=== PATIENT | female | born 1990 | race Caucasian/White ===

== ENCOUNTER 2018-05-10 22:46 | Emergency (ER) | payer OTHER ==
[2018-05-10 22:56] VITALS: BP 133/91; PULSE 68; TEMP 97.6; BMI 31.6
--- NOTE | 2018-05-11 00:26 | PDOC ---
History of Present Illness - General History Source: Patient Exam Limitations: No Limitations - History of Present Illness Initial Comments: 05/11/18 01:17 The patient is a 28 year old female, with a significant past medical history of recurrent kidney stones, who presents to the emergency department with, right flank pain with associated nausea. Patient notes similar episodes in the past due to her kidney stones, when they move around. Her last CT was 4 months ago. She denies recent fevers, chills, headache or dizziness. She denies recent nausea, diarrhea or constipation. She denies recent dysuria, frequency, urgency or hematuria. She denies recent chest pain or shortness of breath. Allergies: NKA Social history: Nonsmoker. Denies EtOH use and recreational drug use. Urologist: [facility] <Jeremias Miranda - Last Filed: 05/11/18 02:17> <Mary Chavez - Last Filed: 05/11/18 02:25> - General Chief Complaint: Pain Stated Complaint: KIDNEY PAIN Time Seen by Provider: 05/11/18 00:26 Past History <Jeremias Miranda - Last Filed: 05/11/18 02:17> - Past Medical History COPD: No Disorders: Yes (cystineurea) - Suicide/Smoking/Psychosocial Hx Smoking History: Never smoked Have you smoked in the past 12 months: No Information on smoking cessation initiated: No Hx Alcohol Use: No Drug/Substance Use Hx: No <Mary Chavez - Last Filed: 05/11/18 02:25> - Past Medical History Allergies/Adverse Reactions: Allergies Allergy/AdvReac Type Severity Reaction Status Date / Time No Known Allergies Allergy Verified 12/20/17 01:11 Home Medications: Ambulatory Orders Potassium Citrate [Potassium Citrate ER] 10 meq PO DAILY 05/11/18 Review of Systems - Review of Systems Able to Perform ROS?: Yes Comments:: 05/11/18 01:18 GENERAL/CONSTITUTIONAL: No fever or chills. No weakness. HEAD, EYES, EARS, NOSE AND THROAT: No change in vision. No ear pain or discharge. No sore throat. GASTROINTESTINAL: +Nausea. No vomiting, diarrhea or constipation. GENITOURINARY: +Right flank pain. No dysuria, frequency, or change in urination. CARDIOVASCULAR: No chest pain or shortness of breath. RESPIRATORY: No cough, wheezing, or hemoptysis. MUSCULOSKELETAL: No joint or muscle swelling or pain. No neck or back pain. SKIN: No rash NEUROLOGIC: No headache, vertigo, loss of consciousness, or change in strength/ sensation. ENDOCRINE: No increased thirst. No abnormal weight change. HEMATOLOGIC/LYMPHATIC: No anemia, easy bleeding, or history of blood clots. ALLERGIC/IMMUNOLOGIC: No hives or skin allergy. All Other Systems: Reviewed and Negative <Jeremias Miranda - Last Filed: 05/11/18 02:17> *Physical Exam - Vital Signs Last Vital Signs Temp Pulse Resp BP Pulse Ox 97.6 F 68 20 133/91 100 05/10/18 22:51 05/10/18 22:51 05/10/18 22:51 05/10/18 22:51 05/10/18 22:51 - Physical Exam Comments: 05/11/18 01:19 GENERAL: Awake, in no acute distress HEAD: No signs of trauma ENT: Moist mucosa NECK: Normal ROM, supple, no lymphadenopathy or JVD. LUNGS: Breath sounds equal, clear to auscultation bilaterally. No wheezes, and no crackles. Normal work of breathing. HEART: Regular rate and rhythm, normal S1 and S2, no murmurs, rubs or gallops ABDOMEN: Soft, nontender, normoactive bowel sounds. No guarding. Non- distended. BACK: No midline tenderness. EXTREMITIES: Normal range of motion, no edema. No clubbing or cyanosis. No erythema, or tenderness NEUROLOGICAL: Alert, and fully oriented x4, Cranial nerves II through XII grossly intact. Normal speech. DTRs 2/4 bilaterally. SKIN: Warm, Dry, normal turgor, no rashes or lesions noted. <Jeremias Miranda - Last Filed: 05/11/18 02:17> - Vital Signs Last Vital Signs Temp Pulse Resp BP Pulse Ox 97.6 F 68 20 133/91 100 05/10/18 22:51 05/10/18 22:51 05/10/18 22:51 05/10/18 22:51 05/10/18 22:51 <Mary Chavez - Last Filed: 05/11/18 02:25> Moderate Sedation - Procedure Monitoring Vital Signs: Procedure Monitoring Vital Signs Temperature 97.6 F 05/10/18 22:51 Pulse Rate 68 05/10/18 22:51 Respiratory Rate 20 05/10/18 22:51 Blood Pressure 133/91 05/10/18 22:51 O2 Sat by Pulse Oximetry (%) 100 05/10/18 22:51 <RitikaSeth brookelina - Last Filed: 05/11/18 02:17> - Procedure Monitoring Vital Signs: Procedure Monitoring Vital Signs Temperature 97.6 F 05/10/18 22:51 Pulse Rate 68 05/10/18 22:51 Respiratory Rate 20 05/10/18 22:51 Blood Pressure 133/91 05/10/18 22:51 O2 Sat by Pulse Oximetry (%) 100 05/10/18 22:51 <Mary Chavez - Last Filed: 05/11/18 02:25> ED Treatment Course - LABORATORY CBC & Chemistry Diagram: 05/11/18 01:18 05/11/18 01:18 <Jeremias Miranda - Last Filed: 05/11/18 02:17> - LABORATORY CBC & Chemistry Diagram: 05/11/18 01:18 05/11/18 01:18 <Mary AnneMary keyes - Last Filed: 05/11/18 02:25> Medical Decision Making - Medical Decision Making 05/11/18 02:17 EXAM: ABDOMEN \T\ PELVIS CT W/O CONTR HISTORY: Flank pain COMPARISON: None. FINDINGS: Lung bases are clear. The visualized cardiac chambers are normal size and configuration. There is a 3.3 x 1.7 cm left renal staghorn stone in additional punctate left renal stones with cortical scarring but no hydronephrosis or ureteral stone. There are moderate-sized right renal stones measuring up to 12 mm with mild scarring but no ureteral stones or hydronephrosis . No perinephric inflammation. Normal unenhanced liver, gallbladder, pancreas, spleen, adrenal glands . The stomach and abdominal small and large bowel are normal. There is no aortic aneurysm. There is no significant retroperitoneal lymphadenopathy. The pelvic small and large bowel are normal. The appendix is normal. The uterus and adnexal structures are notable only for IUD. Urinary bladder is unremarkable. There is no pelvic free fluid. No discrete pelvic lymphadenopathy is identified. IMPRESSION: Bilateral renal stones and scarring without hydronephrosis or perinephric inflammation, including a 3.3 cm left renal staghorn calculus. One or more of the following dose reduction techniques were used: automated exposure control, adjustment of the mA and/or kV according to patient size, use of iterative reconstructive technique. Read by: Dayne Ratliff MD <Jeremias Miranda - Last Filed: 05/11/18 02:17> - Medical Decision Making 05/11/18 02:23 CT scan shows no evidence of obstruction or ureterolithiasis Patient given Toradol 30 mg IV prior to discharge with Zofran ODT prescription She will follow up with her urologist <Mary Chavez - Last Filed: 05/11/18 02:25> *DC/Admit/Observation/Transfer - Attestations Scribe Attestion: 05/11/18 01:19 Documentation prepared by Jeremias Miranda, acting as biomedical engineering technician for Mary Chavez DO. <Jeremias Miranda - Last Filed: 05/11/18 02:17> - Discharge Dispostion Decision to Admit order: No - Attestations Physician Attestion: 05/11/18 02:21 I, Dr Mary Chavez, attest that this document has been prepared under my direction and personally reviewed by me in its entirety. I further attest, that it accurately reflects all work, procedures and medical decision making performed by me. <Mary Chavez - Last Filed: 05/11/18 02:25> Diagnosis at time of Disposition: Flank pain, Nephrolithiasis - Discharge Dispostion Disposition: HOME Condition at time of disposition: Stable - Patient Instructions Printed Discharge Instructions: Kidney Stones -- Adult Additional Instructions: Follow-up with your urologist. Return to the hospital if you develop fever or
[2018-05-11] MEDS ORDERED: SODIUM CHLORIDE 1,000 ML IV STA (00:32)
[2018-05-11] MEDS ORDERED: ONDANSETRON 4 MG/2 ML VIAL IVPUSH ONE (00:32)
[2018-05-11] MEDS ORDERED: ONDANSETRON 4 MG/2 ML VIAL ONE (00:53)
[2018-05-11 01:27] LABS: HEMATOCRIT 41.3 % (32.4-45.2); HEMOGLOBIN 13.9 GM/dL (10.7-15.3); MCH 27.9 pg (25.7-33.7); MCHC 33.7 g/dl (32.0-36.0); MEAN CELL VOLUME 82.8 fl (80-96); MEAN PLT VOLUME 8.5 fl (7.5-11.1); PLATELET COUNT 224 K/MM3 (134-434); RBC 4.99 M/mm3 (3.60-5.2); WHITE BLOOD COUNT 9.6 K/mm3 (4.0-10.0)
[2018-05-11 01:31] LABS: URINE APPEARANCE CLEAR; URINE BILIRUBIN NEGATIVE (<2.0 mg/dL); URINE COLOR COLORLESS; URINE GLUCOSE (UA) NEGATIVE (NEGATIVE); URINE KETONE NEGATIVE (NEGATIVE); URINE LEUK ESTERASE 1+ (NEGATIVE); URINE NITRITE NEGATIVE (NEGATIVE); URINE PROTEIN NEGATIVE (NEGATIVE); URINE UROBILINOGEN NEGATIVE mg/dL (0.2-1.0)
[2018-05-11 01:33] LABS: EPI CELLS RARE /HPF (FEW)
[2018-05-11 01:55] LABS: ALBUMIN 4.3 g/dl (3.4-5.0); ALK PHOS 68 U/L (45-117); ANION GAP 5 MMOL/L (8-16); BILIRUBIN,TOTAL 0.2 mg/dL (0.2-1); BLOOD UREA NITROGEN 17 mg/dL (7-18); CALCIUM 9.4 mg/dL (8.5-10.1); CHLORIDE 101 mmol/L (98-107); CO2 29 mmol/L (21-32); CREATININE 1.1 mg/dL (0.55-1.3); GLUCOSE,RANDOM 103 mg/dL (74-106); POTASSIUM 4.2 mmol/L (3.5-5.1); SGOT/AST 26 U/L (15-37); SGPT/ALT 52 U/L (13-61); SODIUM 135 mmol/L (136-145); TOT PROT 8.2 g/dl (6.4-8.2)
[2018-05-11 06:38] LABS: N-TERMINAL BNP 30.4 pg/ml (5-125)
== END 2018-05-11 02:39 | disposition home or self-care (01) ==
LOC: JER 22:46
DX: R10.31 Right lower quadrant pain (principal); N20.0 Calculus of kidney; Z87.442 Personal history of urinary calculi
CPT/HCPCS: 36415; 74176-TC; 80053; 81003; 81015; 83880; 85027; 99283-25; J7030

== ENCOUNTER 2019-03-08 04:09 | Emergency (ER) | payer OTHER ==
[2019-03-08 04:29] VITALS: TEMP 98; BMI 31.1
[2019-03-08] MEDS ORDERED: SODIUM CHLORIDE 1,000 ML IV STA (06:49)
--- NOTE | 2019-03-08 06:50 | PDOC ---
History of Present Illness - General Chief Complaint: Pain, Acute Stated Complaint: R/O KIDNEY STONE/UTI Time Seen by Provider: 03/08/19 06:33 - History of Present Illness Initial Comments: 03/08/19 06:45 HPI: 29 y/o with hx of cystinuria and recurrent UTIs/kidney stones presenting with abdominal pain and flank pain x2 days. She reports feeling "renal colic" that is present in her BL lateral abdomen with radiation to the BL flanks. Pain is crampy and throbbing in nature. Pain is constant and intermittently worsens. Pain occasionally worsens during urination but denies any burning urination or hematuria. She also reports nausea and hasnt been drinking as much water as she normally does. She denies fever, chills, emesis, chest pain, SOB, postprandial pain, heartburn. PMHx: as noted above ROS: as noted SHx: weekly hookah tobacco use; occasional alcohol use; no rec drugs Allergies: NKDA ROS: GENERAL/CONSTITUTIONAL: No fever or chills. No weakness. HEAD, EYES, EARS, NOSE AND THROAT: No change in vision. No ear pain or discharge. No sore throat. CARDIOVASCULAR: No chest pain or shortness of breath RESPIRATORY: No cough, wheezing, or hemoptysis. GASTROINTESTINAL: +nausea; no vomiting, diarrhea or constipation. GENITOURINARY: +dysuria; no frequency, or change in urination. MUSCULOSKELETAL: No joint or muscle swelling or pain. No neck or back pain. SKIN: No rash NEUROLOGIC: No headache, vertigo, loss of consciousness, or change in strength/ sensation. ENDOCRINE: No increased thirst. No abnormal weight change HEMATOLOGIC/LYMPHATIC: No anemia, easy bleeding, or history of blood clots. ALLERGIC/IMMUNOLOGIC: No hives or skin allergy. PE: GENERAL: Awake, alert, and fully oriented, no acute distress HEAD: No signs of trauma, normocephalic, atraumatic EYES: EOMI, sclera anicteric, conjunctiva clear ENT: Auricles normal inspection, hearing grossly normal, nares patent, oropharynx clear without exudates. Moist mucosa NECK: Normal ROM, no lymphadenopathy LUNGS: No increased work of breathing, symmetrical chest rise, clear to auscultation bilaterally, no wheezes, crackles or rhonchi HEART: Regular rate and rhythm, normal S1 and S2, no murmur, peripheral pulses 2 + and equal bilaterally. ABDOMEN: Soft, nondistended, nontender, normoactive bowel sounds. No guarding, no rebound. No masses. right CVAT MUSCULOSKELETAL: Normal inspection, FROM NEUROLOGICAL: Cranial nerves II through XII grossly intact. Normal speech, normal gait, no focal sensorimotor deficits SKIN: Warm, Dry, normal turgor, no rashes or lesions noted Past History - Past Medical History Allergies/Adverse Reactions: Allergies Allergy/AdvReac Type Severity Reaction Status Date / Time No Known Allergies Allergy Verified 03/08/19 04:24 Home Medications: Ambulatory Orders Ondansetron [Zofran Odt -] 4 mg SL TID PRN #12 od.tablet 05/11/18 Potassium Citrate [Potassium Citrate ER] 10 meq PO DAILY 05/11/18 COPD: No Disorders: Yes (cystineurea) - Psycho Social/Smoking Cessation Hx Smoking History: Never smoked Have you smoked in the past 12 months: No Hx Alcohol Use: No Drug/Substance Use Hx: No *Physical Exam - Vital Signs Last Vital Signs Temp Pulse Resp BP Pulse Ox 98.0 F 69 18 124/92 98 03/08/19 04:22 03/08/19 04:22 03/08/19 04:22 03/08/19 04:22 03/08/19 04:22 Medical Decision Making - Medical Decision Making 03/08/19 06:48 29 y/o with hx of cystinuria and recurrent UTIs/kidney stones presenting with abdominal pain and flank pain x2 days. VSS, AF. PE with mild right sided CVAT. -ua, ucx, upreg -ivf -signed out to day team to followup labs and reassess Discharge - Discharge Information Problems reviewed: Yes Clinical Impression/Diagnosis: Flank pain, Abdominal pain - Follow up/Referral - Patient Discharge Instructions - Post Discharge Activity
--- NOTE | 2019-03-08 06:56 | PDOC ---
Attending Attestation - Resident Resident Name: Giovanna Stout - ED Attending Attestation I have performed the following: I have examined & evaluated the patient, The case was reviewed & discussed with the resident, I agree w/resident's findings & plan - HPI HPI: 03/08/19 06:55 see resident hpi - Physicial Exam PE: 03/08/19 06:55 agree with resident exam - Medical Decision Making 03/08/19 06:56 29-year-old female with history of nephrolithiasis complaining of bilateral flank pain increased with urination Plan for urinalysis and signed out to day team for further evaluation
[2019-03-08 07:14] LABS: PH,URINE 8.5 (5.0-8.0); URINE APPEARANCE CLEAR; URINE BILIRUBIN NEGATIVE (NEGATIVE); URINE COLOR YELLOW; URINE GLUCOSE (UA) NEGATIVE (NEGATIVE); URINE KETONE NEGATIVE (NEGATIVE); URINE LEUK ESTERASE NEGATIVE (NEGATIVE); URINE NITRITE NEGATIVE (NEGATIVE); URINE PROTEIN NEGATIVE (NEGATIVE); URINE UROBILINOGEN 0.2 mg/dL (0.2-1.0)
[2019-03-08 07:56] LABS: BASO % 0.3 % (0-2.0); EOS % 2.5 % (0-4.5); HEMATOCRIT 41.4 % (32.4-45.2); HEMOGLOBIN 13.4 GM/dL (10.7-15.3); LYMPH % 30.4 % (8-40); MCH 26.9 pg (25.7-33.7); MCHC 32.3 g/dl (32.0-36.0); MEAN CELL VOLUME 83.1 fl (80-96); MEAN PLT VOLUME 8.3 fl (7.5-11.1); MONO % 5.7 % (3.8-10.2); NEUT % 61.1 % (42.8-82.8); PLATELET COUNT 244 K/MM3 (134-434); RBC 4.98 M/mm3 (3.60-5.2); RDW 14.3 % (11.6-15.6); WHITE BLOOD COUNT 9.1 K/mm3 (4.0-10.0)
[2019-03-08 08:19] LABS: ALBUMIN 4.2 g/dl (3.4-5.0); BILIRUBIN,TOTAL 0.7 mg/dL (0.2-1); CALCIUM 9.5 mg/dL (8.5-10.1); CREATININE 0.8 mg/dL (0.55-1.3); POTASSIUM 4.2 mmol/L (3.5-5.1); TOT PROT 7.6 g/dl (6.4-8.2)
[2019-03-08] MEDS ORDERED: MAG HYDROX/AL HYDROX/SIMETH 30 ML UNIT-DOSE CUP PO ONE (08:29)
[2019-03-08] MEDS ORDERED: FAMOTIDINE 20 MG/50 ML IVPB 20 MG/50 ML MG IVPB ONE ×2 (08:30→08:38)
[2019-03-08] MEDS ORDERED: ONDANSETRON 4 MG/2 ML VIAL IVPUSH ONE (08:30)
[2019-03-08] MEDS ORDERED: ONDANSETRON 4 MG/2 ML VIAL ONE (08:38)
[2019-03-08] MEDS ORDERED: MAG HYDROX/AL HYDROX/SIMETH 30 ML UNIT-DOSE CUP ONE (08:38)
--- NOTE | 2019-03-08 09:13 | PDOC ---
*Physical Exam - Vital Signs Last Vital Signs Temp Pulse Resp BP Pulse Ox 98.0 F 69 18 124/92 98 03/08/19 04:22 03/08/19 04:22 03/08/19 04:22 03/08/19 04:22 03/08/19 04:22 - Physical Exam General Appearance: Yes: Nourished, Appropriately Dressed HEENT: positive: EOMI, GRETA, Normal ENT Inspection, Pharynx Normal Neck: positive: Trachea midline, Normal Thyroid, Supple Respiratory/Chest: positive: Lungs Clear, Normal Breath Sounds Cardiovascular: positive: Regular Rhythm, Regular Rate, S1, S2. negative: Murmur, Gallop/S3, Gallop/S4 Vascular Pulses: Dorsalis-Pedis (R): 2+, Doralis-Pedis (L): 2+ Gastrointestinal/Abdominal: positive: Normal Bowel Sounds, Soft, Tenderness ( flank pain, 5/10) Neurologic: positive: Fully Oriented, Alert, Normal Mood/Affect ED Treatment Course - LABORATORY CBC & Chemistry Diagram: 03/08/19 07:30 03/08/19 07:30 - ADDITIONAL ORDERS Additional order review: Laboratory Results 03/08/19 03/08/19 03/08/19 07:30 06:55 06:55 Sodium 138 Potassium 4.2 Chloride 104 Carbon Dioxide 28 Anion Gap 5 L BUN 16.0 Creatinine 0.8 Est GFR (CKD-EPI)AfAm 114.66 Est GFR (CKD-EPI)NonAf 98.93 Random Glucose 87 Calcium 9.5 Total Bilirubin 0.7 AST 25 ALT 43 Alkaline Phosphatase 55 Total Protein 7.6 Albumin 4.2 Lipase 145 Urine Color Yellow Urine Appearance Clear Urine pH 8.5 H Ur Specific [place] 1.008 L Urine Protein Negative Urine Glucose (UA) Negative Urine Ketones Negative Urine Blood Negative Urine Nitrite Negative Urine Bilirubin Negative Urine Urobilinogen 0.2 Ur Leukocyte Esterase Negative Urine HCG, Qual Negative 03/08/19 07:30 RBC 4.98 MCV 83.1 MCHC 32.3 RDW 14.3 MPV 8.3 Neutrophils % 61.1 Lymphocytes % 30.4 Monocytes % 5.7 Eosinophils % 2.5 Basophils % 0.3 - RADIOLOGY Radiology Studies Ordered: Category Date Time Status ABDOMEN FLAT & UPRIGHT [RAD] Stat Radiology 03/08/19 08:31 Completed - Medications Given in the ED: ED Medications Discontinued Medications Generic Name Dose Route Start Last Admin Trade Name [place] PRN Reason Stop Dose Admin Al Hydroxide/Mg Hydroxide 30 ml 03/08/19 08:29 03/08/19 08:30 Mylanta Oral Suspension - PO 03/08/19 08:30 30 ml ONCE ONE Administration Sodium Chloride 1,000 mls @ 1,000 mls/hr 03/08/19 06:49 03/08/19 07:20 Normal Saline - IV 03/08/19 07:48 1,000 mls/hr ASDIR STA Administration Famotidine/Sodium Chloride 20 mg in 50 mls @ 100 mls/hr 03/08/19 08:30 08:30 Pepcid 20 Mg Premixed Ivpb - IVPB 03/08/19 08:59 100 mls/hr ONCE ONE Administration Ondansetron HCl 4 mg 03/08/19 08:30 03/08/19 08:30 Zofran Injection IVPUSH 03/08/19 08:31 4 mg ONCE ONE Administration Medical Decision Making - Medical Decision Making 29 y/o F, pmh cystinuria and recurrent UTIs/kidney stones presenting with abdominal pain and flank pain x2 days duration #LUQ pain likely 2/2 to indigestion vs gastritis Pepcid, Maalox, Zofran- helped relieve symptoms Abdominal X ray ordered Tolerating oral diet Will reassess 03/08/19 09:13 Discharge - Discharge Information Clinical Impression/Diagnosis: Flank pain Abdominal pain Qualifiers: Abdominal location: left upper quadrant Qualified Code(s): R10.12 - Left upper quadrant pain Condition: Improved Disposition: HOME - Admission No - Additional Discharge Information Prescriptions: Polyethylene Glycol 3350 17 gm PO DAILY 7 Days powd.pack Polyethylene Glycol 3350 17 gm PO DAILY 7 Days #7 powd.pack - Follow up/Referral Referrals: Theron Trevino MD [Staff Physician] - [facility] [place] [Provider Group] - Patient Discharge Instructions Patient Printed Discharge Instructions: DI for Constipation, DI for Dyspepsia Additional Instructions: You were seen in the Emergency department for abdominal pain While you were in the emergency room, we evaluated you with lab work, blood work , and imaging including X ray of your abdominal. We found that your symptoms were caused by indigestion and constipation. We treated you with medications and your symptoms improved significantly. To prevent future abdominal pain from constipation, Take Miralax 1 packet a day for one week. We also found on your imaging that you had some kidney stones which will require you to follow up with your urologist Please follow up with your Urologist or the Urologist we have provided within 1 week Please follow up with your primary care physician in 1 week Return to the emergency department if you experience worsening of your symptoms , nausea, vomiting, diarrhea, or any other worsening of your condition. - Post Discharge Activity
[2019-03-08 10:15] VITALS: BP 118/70; PULSE 62
== END 2019-03-08 10:16 | disposition home or self-care (01) ==
LOC: JER 04:09
PROC: 3E0337Z Introduction of Electrolytic and Water Balance Substance into Peripheral Vein, Percutaneous Approach (ICD-10-PCS; principal; 2019-03-08)
PROC: 3E033GC Introduction of Other Therapeutic Substance into Peripheral Vein, Percutaneous Approach (ICD-10-PCS; 2019-03-08)
PROC: 3E033GC Introduction of Other Therapeutic Substance into Peripheral Vein, Percutaneous Approach (ICD-10-PCS; 2019-03-08)
DX: K30 Functional dyspepsia (principal); K59.00 Constipation, unspecified; M54.89 Other dorsalgia; Z87.442 Personal history of urinary calculi
CPT/HCPCS: 36415; 74019-TC-FY; 80053; 81003; 83690; 84703; 85025; 87086; 99284-25; J7030

== ENCOUNTER 2019-04-04 21:33 | Emergency (ER) | payer OTHER ==
--- NOTE | 2019-04-04 21:46 | PDOC ---
Rapid Medical Evaluation Chief Complaint: Abscess Boil Time Seen by Provider: 04/04/19 21:45 Medical Evaluation: Allergies Allergy/AdvReac Type Severity Reaction Status Date / Time No Known Allergies Allergy Verified 04/04/19 21:41 04/04/19 21:46 Pt presents for evaluation of abscess to the gluteal region Exam: deferred to provider Orders: nothing Pt to proceed to the ER for further evaluation Discharge Disposition - Diagnosis Cyst - Referrals - Patient Instructions - Post Discharge Activity
[2019-04-04 21:47] VITALS: BP 143/80; PULSE 101; TEMP 98.6; BMI 31.4
[2019-04-04] MEDS ORDERED: SULFAMETHOXAZOLE/TRIMETHOPRIM 800MG/160MG D.S. TABLET PO ONE (22:32)
--- NOTE | 2019-04-04 22:41 | PDOC ---
History of Present Illness - General Chief Complaint: Abscess Boil Stated Complaint: CYST Time Seen by Provider: 04/04/19 21:45 History Source: Patient Exam Limitations: No Limitations - History of Present Illness Initial Comments: 04/04/19 22:36 Patient is a 29-year-old female who presents to the ED with complaint of a cyst on her left buttocks that she has had for the last 2 days. She has been doing warm soaks without any relief. She denies any drainage from the cyst. She states this is happened to her in the past and she required an I&D. She denies any fevers or chills. She does admit to pain in that area. She has a history of kidney disease and states she makes kidney stones. She has normal kidney function. She denies any other complaints today. Past History - Past Medical History Allergies/Adverse Reactions: Allergies Allergy/AdvReac Type Severity Reaction Status Date / Time No Known Allergies Allergy Verified 04/04/19 21:41 Home Medications: Ambulatory Orders Ondansetron [Zofran Odt -] 4 mg SL TID PRN #12 od.tablet 05/11/18 Potassium Citrate [Potassium Citrate ER] 10 meq PO DAILY 05/11/18 Polyethylene Glycol 3350 17 gm PO DAILY 7 Days powd.pack 03/08/19 Polyethylene Glycol 3350 17 gm PO DAILY 7 Days #7 powd.pack 03/08/19 Sulfamethoxazole/Trimethoprim [Bactrim Ds -] 1 tab PO BID 10 Days #20 tablet COPD: No Disorders: Yes (cystineurea) - Psycho Social/Smoking Cessation Hx Smoking History: Current every day smoker Have you smoked in the past 12 months: No Number of Cigarettes Smoked Daily: 1 Information on smoking cessation initiated: No Hx Alcohol Use: No Drug/Substance Use Hx: Yes (marajuana) Review of Systems - Review of Systems Comments:: 04/04/19 22:38 - Review of Systems Able to Perform ROS?: Yes Constitutional: No: Fever, Chills, Loss of Appetite, Night Sweats, Weakness HEENTM: No: Eye Pain, Vision changes, Ear Pain, Throat Pain, Throat Swelling, Mouth Pain, Difficulty Swallowing Respiratory: No: Cough, Shortness of Breath, Wheezing, Sputum Production Cardiac (ROS): No: Chest Pain, Chest Tightness, Palpitations, Irregular Heart Beat, Edema ABD/GI: No: Nausea, Vomiting, Abdominal Pain, Diarrhea : No Dysuria, No Hematuria, No Frequency, No Urgency, No Vaginal Discharge Musculoskeletal: No: Muscle Pain, Back Pain, Joint Pain, Muscle Weakness, Neck Pain Integumentary: No: Lesions, Rash; + abscess L buttocks Neurological: No: Headache, Numbness, Tingling, Weakness, Speech Difficulties *Physical Exam - Vital Signs Last Vital Signs Temp Pulse Resp BP Pulse Ox 98.6 F 101 H 18 143/80 100 04/04/19 21:41 04/04/19 21:41 04/04/19 21:41 04/04/19 21:41 04/04/19 21:41 - Physical Exam 04/04/19 22:39 - Physical Exam General Appearance: Nourished, Appropriately Dressed, No Distress Respiratory/Chest: Lungs Clear, Normal Breath Sounds. No Respiratory Distress, No Accessory Muscle Use Cardiovascular: Regular Rhythm, Regular Rate, S1, S2 Gastrointestinal/Abdominal: Normal Bowel Sounds, Soft. Non-tender, No Guarding , No Rebound, No Rigidity Musculoskeletal: Normal Inspection. No Decreased Range of Motion Extremity: Normal Capillary Refill, Normal Inspection Integumentary: Normal Color, Dry. No Rash; Positive indurated lesion at the proximal left gluteal fold without fluctuance. There is no active drainage. There is some erythema and warmth to touch. There is significant tenderness to palpation. Neurologic: director learning services II-XII NML intact, Fully Oriented, Alert, Normal Mood/Affect, Normal Response Medical Decision Making - Medical Decision Making 04/04/19 22:40 The patient is a 29-year-old female with a left small buttock abscess without fluctuance. The patient has been made aware that the abscess is not ready for I &D. She must continue sitz bath's and warm soaks and a prescription for Bactrim will be sent to her pharmacy. She may have to return in a few days for I&D. She also has been made aware the abscess may open on its own or may resolve on its own. We will give her referral to general surgery as this is a recurrent problem. Discharge - Discharge Information Problems reviewed: Yes Clinical Impression/Diagnosis: Cyst, Abscess of buttock, left Condition: Stable Disposition: HOME - Additional Discharge Information Prescriptions: Sulfamethoxazole/Trimethoprim [Bactrim Ds -] 1 tab PO BID 10 Days #20 tablet - Follow up/Referral Referrals: ON STAFF,NOT [Primary Care Provider] - Boris Whitman MD [Staff Physician] - 1 week (Recurrent abscesses may require further intervention) - Patient Discharge Instructions Patient Printed Discharge Instructions: DI for Skin Abscess Additional Instructions: Your abscess is not ready for an incision and drainage. Continue to do warm soaks and sits baths. Take the antibiotics as prescribed and complete the entire course. You may have to follow-up with general surgery for further evaluation and treatment as this is a recurrent problem. Return to the emergency department as needed if the abscess or worsens and requires incision and drainage. - Post Discharge Activity Work/Back to School Note: Back to Work
[2019-04-04] MEDS ORDERED: SULFAMETHOXAZOLE/TRIMETHOPRIM 800MG/160MG D.S. TABLET ONE ×2 (22:48→22:59)
== END 2019-04-04 23:00 | disposition home or self-care (01) ==
LOC: JER 21:33 → JERFT 21:33 → JER 23:00
DX: L02.31 Cutaneous abscess of buttock (principal)
CPT/HCPCS: 99281-25

== ENCOUNTER 2021-05-03 16:17 | Emergency (ER) | payer OTHER ==
[2021-05-03 16:25] VITALS: BP 128/89; PULSE 96; TEMP 98; BMI 32.0
[2021-05-03] MEDS ORDERED: ONDANSETRON *ODT* 4 MG TABLET SL ONE (17:27)
[2021-05-03] MEDS ORDERED: ACETAMINOPHEN WITH CODEINE 300MG/30MG TABLET PO ONE (17:27)
[2021-05-03] MEDS ORDERED: SODIUM CHLORIDE 1,000 ML IV STA (17:34)
[2021-05-03] MEDS ORDERED: ONDANSETRON 4 MG/2 ML VIAL IVPUSH ONE (17:34)
[2021-05-03] MEDS ORDERED: ACETAMINOPHEN WITH CODEINE 300MG/30MG TABLET ONE (18:26)
[2021-05-03 18:39] LABS: BASO % 0.6 % (0-2.0); EOS % 2.8 % (0-4.5); EPI CELLS 9 /uL (0-25.1); HCG,QUALITATIVE URINE Negative; HEMATOCRIT 42.1 % (32.4-45.2); HEMOGLOBIN 13.8 GM/dL (10.7-15.3); HYALINE CASTS 0 /uL (0-3.1); LYMPH % 25.1 % (8-40); MCH 26.8 pg (25.7-33.7); MCHC 32.9 g/dl (32.0-36.0); MEAN CELL VOLUME 81.7 fl (80-96); MEAN PLT VOLUME 7.6 fl (7.5-11.1); NEUT % 58.5 % (42.8-82.8); PLATELET COUNT 204 10^3/uL (134-434); RBC 5.16 M/mm3 (3.60-5.2); RDW 13.6 % (11.6-15.6); URINE APPEARANCE CLEAR; URINE BACTERIA 110 /uL (0-1359); URINE BILIRUBIN NEGATIVE (NEGATIVE); URINE COLOR YELLOW; URINE GLUCOSE (UA) NEGATIVE (NEGATIVE); URINE KETONE NEGATIVE (NEGATIVE); URINE LEUK ESTERASE NEGATIVE (NEGATIVE); URINE NITRITE NEGATIVE (NEGATIVE); URINE PROTEIN 1+ (NEGATIVE); URINE RBC 17 /uL (0-23.9); URINE UROBILINOGEN 0.2 mg/dL (0.2-1.0); URINE WBC 3 /uL (0-25.8); WHITE BLOOD COUNT 4.8 K/mm3 (4.0-10.0)
[2021-05-03 19:00] LABS: ALBUMIN 4.2 g/dl (3.4-5.0); BLOOD UREA NITROGEN 10.4 mg/dL (7-18); CALCIUM 9.5 mg/dL (8.5-10.1)
[2021-05-03 19:03] LABS: CREATININE 0.9 mg/dL (0.55-1.3)
[2021-05-03 19:05] LABS: BILIRUBIN,TOTAL 0.3 mg/dL (0.2-1); TOT PROT 8.1 g/dl (6.4-8.2)
[2021-05-03] MEDS ORDERED: predniSONE 20 MG TABLET (UD) PO ONE (19:27)
[2021-05-03] MEDS ORDERED: predniSONE 20 MG TABLET (UD) ONE (19:35)
[2021-05-03] MEDS: ALBUTEROL SO4 2.5/IPRATROPIUM 0.5 INH SOL 3 ML VIAL.NEB. NEB SCH (20:30)
[2021-05-04 14:08] LABS: SARS-CoV-2 NAA Not Detected (Not Detected)
== END 2021-05-03 20:50 | disposition home or self-care (01) ==
LOC: JER 16:17 → JERFT 16:17
PROC: 3E0F7GC Introduction of Other Therapeutic Substance into Respiratory Tract, Via Natural or Artificial Opening (ICD-10-PCS; principal; 2021-05-03)
PROC: 3E033GC Introduction of Other Therapeutic Substance into Peripheral Vein, Percutaneous Approach (ICD-10-PCS; 2021-05-03)
DX: R05.1 Acute cough (principal)
CPT/HCPCS: 36415; 71046-TC-FY; 80053; 81003; 83690; 84703; 85025; 87086; 87804; 94640; 96374; 99284-25; C9803; U0003; U0005

== ENCOUNTER 2022-03-09 14:54 | Emergency (ER) | payer OTHER ==
[2022-03-09 15:27] VITALS: BMI 32.5
[2022-03-09] MEDS ORDERED: ACETAMINOPHEN 500 MG TABLET (FP) PO ONE (16:27)
[2022-03-09] MEDS ORDERED: ONDANSETRON *ODT* 4 MG TABLET SL ONE (16:28)
[2022-03-09] MEDS ORDERED: SODIUM CHLORIDE 1,000 ML IV STA (16:50)
[2022-03-09] MEDS ORDERED: ONDANSETRON 4 MG/2 ML VIAL IVPUSH ONE (16:50)
[2022-03-09] MEDS ORDERED: ONDANSETRON 4 MG/2 ML VIAL ONE (17:17)
[2022-03-09] MEDS ORDERED: ACETAMINOPHEN 325 MG TABLET (FP) ONE (18:00)
[2022-03-09 18:05] LABS: BASO % 0.4 % (0-2.0); EOS % 0.2 % (0-4.5); HEMATOCRIT 43.3 % (32.4-45.2); HEMOGLOBIN 13.5 GM/dL (10.7-15.3); LYMPH % 14.7 % (8-40); MCH 25.6 pg (25.7-33.7); MCHC 31.3 g/dl (32.0-36.0); MEAN CELL VOLUME 81.7 fl (80-96); MEAN PLT VOLUME 8.2 fl (7.5-11.1); MONO % 13.2 % (3.8-10.2); NEUT % 71.5 % (42.8-82.8); PLATELET COUNT 201 10^3/uL (134-434); RDW 13.8 % (11.6-15.6)
[2022-03-09 18:22] LABS: CALCIUM 9.4 mg/dL (8.5-10.1)
[2022-03-09 18:23] LABS: ALBUMIN 4.3 g/dl (3.4-5.0); BLOOD UREA NITROGEN 9.7 mg/dL (7-18)
[2022-03-09 18:25] LABS: EPI CELLS >36 /uL (0-25.1); HYALINE CASTS 1 /uL (0-3.1); URINE APPEARANCE CLOUDY; URINE BACTERIA 411 /uL (0-1359); URINE BILIRUBIN NEGATIVE (NEGATIVE); URINE COLOR YELLOW; URINE GLUCOSE (UA) NEGATIVE (NEGATIVE); URINE KETONE TRACE (NEGATIVE); URINE LEUK ESTERASE TRACE (NEGATIVE); URINE NITRITE NEGATIVE (NEGATIVE); URINE PROTEIN 1+ (NEGATIVE); URINE RBC 32 /uL (0-23.9); URINE WBC 35 /uL (0-25.8)
[2022-03-09 18:26] LABS: HCG,QUALITATIVE URINE Negative
[2022-03-09 18:27] LABS: BILIRUBIN,TOTAL 0.4 mg/dL (0.2-1); TOT PROT 8.3 g/dl (6.4-8.2)
[2022-03-09] MEDS ORDERED: KETOROLAC TROMETHAMINE 15 MG/ML VIAL IVPUSH ONE (18:51)
[2022-03-09] MEDS ORDERED: KETOROLAC TROMETHAMINE 15 MG/ML VIAL ONE (20:36)
[2022-03-09] MEDS ORDERED: CEFTRIAXONE 1,000 MG in DEXTROSE 5%-WATER - 50 ML IVPB ONE (21:48)
[2022-03-09] MEDS ORDERED: CEFTRIAXONE 1 GM/50 ML BAG ONE (23:08)
[2022-03-09 23:14] VITALS: PULSE 80; RESP 16; TEMP 99
[2022-03-09 23:20] VITALS: BP 104/66
== END 2022-03-09 23:32 | disposition home or self-care (01) ==
LOC: JER 14:54
PROC: 3E033GC Introduction of Other Therapeutic Substance into Peripheral Vein, Percutaneous Approach (ICD-10-PCS; principal; 2022-03-09)
DX: J09.X2 Influenza due to identified novel influenza A virus with other respiratory manifestations (principal); N30.00 Acute cystitis without hematuria
CPT/HCPCS: 0241U-QW; 36415; 74177-TC; 80053; 81003; 83605; 84703; 85025; 87040; 87086; 99285-25; Q9967

== ENCOUNTER 2024-10-10 08:19 | Emergency (ER) | payer OTHER ==
[2024-10-10 08:26] VITALS: TEMP 97.9; BMI 32.5
[2024-10-10] MEDS ORDERED: METOCLOPRAMIDE HCL INJECTION 10 MG/2 ML VIAL ONE (09:52)
[2024-10-10] MEDS: METOCLOPRAMIDE HCL INJECTION 10 MG/2 ML VIAL IVPUSH ONE (09:58)
[2024-10-10 10:36] LABS: ABSOLUTE IMMATURE GRANULOCYTES 0.03 x10^3/uL (0.0-0.031); BASOPHILS # 0.04 x10^3/uL (0.01-0.08); EOSINOPHIL % 4.6 % (0.7-5.8); EOSINOPHILS # 0.40 x10^3/uL (0.04-0.36); MCHC 31.1 g/dl (32.2-35.5); MEAN CELL VOLUME 82.5 fl (79.4-94.8); MEAN PLT VOLUME 9.6 fl (9.4-12.3); MONOCYTE # 0.54 x10^3/uL (0.24-0.86); MONOCYTE % 6.2 % (4.7-12.5); RDW 13.3 % (12.1-16.8)
[2024-10-10 10:46] LABS: INR 0.94 (0.83-1.09); PROTHROMBIN TIME (PATIENT) 10.3 SEC (9.7-13.0)
[2024-10-10 11:21] LABS: CO2 28.0 mmol/L (21-32); GLUCOSE,RANDOM 118.0 mg/dL (74-106)
[2024-10-10 11:24] LABS: CREATININE 0.9 mg/dL (0.55-1.3); SGOT/AST 20.0 U/L (15-37); SGPT/ALT 36.0 U/L (13-61)
[2024-10-10 11:25] LABS: TOT PROT 8.2 g/dl (6.4-8.2)
[2024-10-10 11:26] LABS: ALK PHOS 75.0 U/L (45-117)
[2024-10-10] MEDS ORDERED: ACETAMINOPHEN INJECTION 100 ML ONE (11:34)
[2024-10-10] MEDS: ACETAMINOPHEN 1000 MG/100 ML BAG IVPB ONE (11:41)
[2024-10-10 12:32] VITALS: BP 129/96; PULSE 71; RESP 18
[2024-10-10 14:23] LABS: HCV DIAGNOSTIC IN-HOUSE W/RFLX NON-REACTIVE (NONREACTIVE)
[2024-10-10 14:25] LABS: HIV INTERPRETATION NEGATIVE (NEGATIVE)
== END 2024-10-10 12:20 | disposition home or self-care (01) ==
LOC: JER 08:19
PROC: 3E033NZ Introduction of Analgesics, Hypnotics, Sedatives into Peripheral Vein, Percutaneous Approach (ICD-10-PCS; principal; 2024-10-10)
PROC: 3E033GC Introduction of Other Therapeutic Substance into Peripheral Vein, Percutaneous Approach (ICD-10-PCS; 2024-10-10)
DX: R51.9 Headache, unspecified (principal); K21.9 Gastro-esophageal reflux disease without esophagitis; H53.71 Glare sensitivity
CPT/HCPCS: 36415; 70450-TC; 80053; 84703; 85025; 85610; 86803; 87389; 93005; 93010; 99285-25